=== PATIENT | male | born 1960 | race Caucasian/White ===

== ENCOUNTER 2018-07-11 11:44 | Emergency (ER) | payer BC ==
--- NOTE | 2018-07-11 12:00 | ER Document Report ---
ED Medical Screen (RME) - General Chief Complaint: Chemical Inhalation Stated Complaint: DIFFICULTY BREATHING Time Seen by Provider: 07/11/18 11:58 Mode of Arrival: Ambulatory Information source: Patient Notes: This is a 57-year-old man with a history of coronary artery disease, hypertension, diabetes and dyslipidemia who was opening up on container of chlorine for the pool when he incidentally took an deep breath and inhaled some chlorine gas. He presents with tightness and irritation when breathing. TRAVEL OUTSIDE OF THE [place] IN LAST 30 DAYS: No - Related Data Allergies/Adverse Reactions: No Known Allergies Allergy (Verified 07/11/18 11:46) Past Medical History - Past Medical History Cardiac Medical History: Reports: Hx Hypercholesterolemia, Hx Hypertension Denies: Hx Coronary Artery Disease, Hx Heart Attack Pulmonary Medical History: Reports: Hx Sleep Apnea Denies: Hx Asthma, Hx Bronchitis, Hx COPD, Hx Pneumonia, Hx Tuberculosis Neurological Medical History: Denies: Hx Cerebrovascular Accident, Hx Seizures Endocrine Medical History: Reports: Hx Diabetes Mellitus Type 2, Hx Hyperthyroidism Renal/ Medical History: Denies: Hx Peritoneal Dialysis GI Medical History: Reports: Hx Gastroesophageal Reflux Disease, Hx Colonoscopy Musculoskeltal Medical History: Denies Hx Arthritis Psychiatric Medical History: Denies: Hx Depression Past Surgical History: Reports: Hx Appendectomy, Hx Cholecystectomy, Hx Oral Surgery - Jaw - Immunizations Hx Diphtheria, Pertussis, Tetanus Vaccination: Yes Physical Exam - Vital signs Vitals: Temp Pulse Resp BP Pulse Ox 98.2 F 75 16 140/81 H 93 07/11/18 11:49 07/11/18 11:49 07/11/18 11:49 07/11/18 11:49 07/11/18 11:49 Course - Vital Signs Vital signs: Temp Pulse Resp BP Pulse Ox 98.2 F 75 16 140/81 H 93 07/11/18 11:49 07/11/18 11:49 07/11/18 11:49 07/11/18 11:49 07/11/18 11:49 Doctor's Discharge - Discharge Referrals: AI PETTY MD [Primary Care Provider] - Follow up as needed
[2018-07-11] MEDS ORDERED: IPRATROPIUM/ALBUTEROL 0.5-2.5 MG/3 ML AMPUL NEB ONE (12:34)
[2018-07-11] MEDS ORDERED: LIDOCAINE 1% INJ-PF (10 MG/ML) 30 ML SDV NEB ONE (12:34)
[2018-07-11] MEDS ORDERED: PREDNISONE 20 MG TABLET PO ONE (12:35)
--- NOTE | 2018-07-11 12:39 | ER Document Report ---
ED Burn/Smoke/Toxic Fumes - General Mode of Arrival: Ambulatory Information source: Patient TRAVEL OUTSIDE OF THE [place] IN LAST 30 DAYS: No <LATISHA LOYA - Last Filed: 07/11/18 13:26> <MAYITO BEDOYA - Last Filed: 07/11/18 16:06> - General Chief Complaint: Chemical Inhalation Stated Complaint: DIFFICULTY BREATHING Time Seen by Provider: 07/11/18 11:58 Notes: 57-year-old male who presents to the emergency department today with complaints of chlorine tablet fume inhalation. Patient states he was bending over a bucket of chlorine tablets to see how many he had left and he took in a big breath of air because he was "not thinking". 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 Patient describes these effects as burning in his nose and throat when breathing in. Patient states he feels like he is wheezing as well which he never does. (LATISHA LOYA) - Related Data Allergies/Adverse Reactions: No Known Allergies Allergy (Verified 07/11/18 11:46) Past Medical History - General Information source: Patient - Social History Smoking Status: Never Smoker Cigarette use (# per day): No Frequency of alcohol use: None Drug Abuse: None Lives with: Family Family History: Reviewed & Not Pertinent Patient has suicidal ideation: No Patient has homicidal ideation: No - Past Medical History Cardiac Medical History: Reports: Hx Hypercholesterolemia, Hx Hypertension Pulmonary Medical History: Reports: Hx Sleep Apnea Endocrine Medical History: Reports: Hx Diabetes Mellitus Type 2, Hx Hyperthyroidism GI Medical History: Reports: Hx Gastroesophageal Reflux Disease, Hx Colonoscopy Past Surgical History: Reports: Hx Appendectomy, Hx Cholecystectomy, Hx Oral Surgery - Jaw - Immunizations Hx Diphtheria, Pertussis, Tetanus Vaccination: Yes <LATISHA LOYA - Last Filed: 07/11/18 13:26> Review of Systems - Review of Systems Constitutional: See HPI, Other - Chlorine fume inhalation EENT: See HPI, Other - Burning sensation and nose and throat Cardiovascular: No symptoms reported Respiratory: See HPI, Wheezing Gastrointestinal: No symptoms reported Genitourinary: No symptoms reported Male Genitourinary: No symptoms reported Musculoskeletal: No symptoms reported Skin: No symptoms reported Hematologic/Lymphatic: No symptoms reported Neurological/Psychological: No symptoms reported -: Yes All other systems reviewed and negative <LATISHA LOYA - Last Filed: 07/11/18 13:26> Physical Exam <LATISHA LOYA - Last Filed: 07/11/18 13:26> <MAYITO BEDOYA - Last Filed: 07/11/18 16:06> - Vital signs Vitals: Temp Pulse Resp BP Pulse Ox 98.2 F 75 16 140/81 H 93 07/11/18 11:49 07/11/18 11:49 07/11/18 11:49 07/11/18 11:49 07/11/18 11:49 - Notes Notes: Physical Exam: General: Alert, appears well. HEENT: Normocephalic. Atraumatic. PERRL. Extraocular movements intact. Oropharynx clear. Neck: Supple. Non-tender. Respiratory: No respiratory distress. Wheezing bilaterally. Complains of a burning sensation in the nose and throat when breathing in. Cardiovascular: Regular rate and rhythm. Abdominal: Normal Inspection. Non-tender. No distension. Normal Bowel Sounds. Back: Non-tender. No deformity or step off. Extremities: Moves all four extremities. Upper extremities: Normal inspection. Normal ROM. Lower extremities: Normal inspection. No edema. Normal ROM. Neurological: Normal cognition. AAOx4. Normal speech. Psychological: Normal affect. Normal Mood. Skin: Warm. Dry. Normal color. (LATISHA LOYA) Course - Diagnostic Test Radiology reviewed: Image reviewed, Reports reviewed - EKG Interpretation by Me EKG shows normal: Sinus rhythm, [place], Intervals, QRS Complexes. abnormal: ST-T Waves - Borderline T abnormalities Rate: Normal - 73 Rhythm: NSR <MAYITO BEDOYA - Last Filed: 07/11/18 16:06> - Vital Signs Vital signs: Temp Pulse Resp BP Pulse Ox 98.2 F 75 17 139/79 H 97 07/11/18 11:49 07/11/18 13:07 07/11/18 13:07 07/11/18 14:00 07/11/18 14:01 Discharge <LATISHA LOYA - Last Filed: 07/11/18 13:26> <MAYITO BEDOYA - Last Filed: 07/11/18 16:06> - Discharge Clinical Impression: Chlorine inhalation lung injury, Acute bronchospasm Condition: Stable Disposition: HOME, SELF-CARE Additional Instructions: Bronchospasm You have tightness in the bronchial tubes, called bronchospasm. This often occurs with bronchial infections. Allergies, inhaled chemicals, and polluted or cold air can also provoke bronchospasm. It's more likely in patients with asthma in the family. Emergency treatment of bronchospasm may include adrenaline shots or bronchodilator aerosol. You may feel lightheaded and have a rapid pulse for an hour or two. Rest and get plenty of fluids. At home, we'll treat you with a bronchodilator inhaler. Antibiotics and corticosteroids may be required for some patients. Until you recover, avoid chemical fumes, dusts, pollens, and exercising in very cold or dry air. If you smoke, stop now!! If you develop a fever, increased wheezing, chest pain, or severe shortness of breath, you should contact the doctor immediately. Drink plenty of fluids. Start the prednisone as prescribed tomorrow. Take your metformin twice daily as it is prescribed. Use the albuterol inhaler 2 inhalations every 4 hours as needed for wheezing or shortness of breath. Follow-up with your doctor if not improving. RETURN TO THE EMERGENCY ROOM IF ANY NEW OR WORSENING SYMPTOMS. Prescriptions: Prednisone 20 mg PO BID #6 tablet Referrals: AI PETTY MD [DEANA LEE] - Follow up as needed Scribe Attestation: 07/11/18 12:55 I personally performed the services described in the documentation, reviewed and edited the documentation which was dictated to the scribe in my presence, and it accurately records my words and actions. (MAYITO BEDOYA) Scribe Documentation - Scribe Written by Scribe:: Wallace Cesar, 07/11/2018 1333 acting as scribe for :: Sia <LATISHA LOYA - Last Filed: 07/11/18 13:26>
[2018-07-11] MEDS ORDERED: ALBUTEROL SULFATE 0.083% NEB 2.5 MG/3 ML AMPUL NEB ONE (13:40)
--- NOTE | 2018-07-11 14:11 | RADIOLOGY REPORT (SQ) ---
EXAM DESCRIPTION: CHEST 2 VIEWS COMPLETED DATE/TIME: 07/11/2018 1:31 pm REASON FOR STUDY: inhaled chlorine gas-sob COMPARISON: 01/01/2016. TECHNIQUE: Frontal and lateral radiographic views of the chest acquired. NUMBER OF VIEWS: Two view. LIMITATIONS: None. FINDINGS: LUNGS AND PLEURA: No opacities, masses or pneumothorax. No pleural effusion. MEDIASTINUM AND HILAR STRUCTURES: No masses or contour abnormalities. HEART AND VASCULAR STRUCTURES: Heart normal size. No evidence for failure. BONES: No acute findings. HARDWARE: None in the chest. OTHER: No other significant finding. IMPRESSION: NO SIGNIFICANT RADIOGRAPHIC FINDING IN THE CHEST. TECHNICAL DOCUMENTATION: JOB ID: [id number] [employer]- All Rights Reserved Reading location - IP/workstation name: [email or web address]
[2018-07-11 16:10] VITALS: BP 141/82
--- NOTE | 2018-07-12 07:56 | EKG REPORT ---
SEVERITY:- BORDERLINE ECG - SINUS RHYTHM BORDERLINE T WAVE ABNORMALITIES : Confirmed by: Christina Lopez 12-Jul-2018 07:55:41
== END 2018-07-11 16:10 | disposition home or self-care (01) ==
LOC: ER 11:44
DX: T59.4X1A Toxic effect of chlorine gas, accidental (unintentional), initial encounter (principal); J68.8 Other respiratory conditions due to chemicals, gases, fumes and vapors; R09.89 Other specified symptoms and signs involving the circulatory and respiratory systems; I10 Essential (primary) hypertension; E11.9 Type 2 diabetes mellitus without complications
CPT/HCPCS: 93005; 94640 ×2; 99284; 71046; 93010; J3490; J7512; J7620

== ENCOUNTER 2018-07-19 02:08 | Emergency (ER) | payer BC ==
--- NOTE | 2018-07-19 02:38 | ER Document Report ---
ED General - General Chief Complaint: Irregular Pulse Stated Complaint: HEART ISSUE Time Seen by Provider: 07/19/18 02:37 Notes: Patient is a pleasant 57-year-old male who presents with complaints of onset of feeling as if his heart was beating irregular tonight. He says that he did feel little bit faster than normal and it felt somewhat irregular. Says he has had this happen several years in the past but it was attributed to him being on a herbal supplement. He stopped taking herbal supplement years ago and is not any issues. He denies any history of atrial fibrillation. No history of ventricular tachycardia. He had a heart cath several years ago which just showed a small blockage in the posterior aspect of his heart. He does not have any stents in place. He does take Plavix and aspirin. He is followed by Pito Coley who is his primary care doctor. He does not see a whiting can worker. During today's episode he did not have any chest pain. He did not feel short of breath. He did not have a syncopal episode. No recent leg pain or leg swelling. TRAVEL OUTSIDE OF THE [place] IN LAST 30 DAYS: No - Related Data Allergies/Adverse Reactions: No Known Allergies Allergy (Verified 07/11/18 11:46) Past Medical History - Social History Smoking Status: Never Smoker Frequency of alcohol use: 2-3 beers daily Drug Abuse: None Family History: Reviewed & Not Pertinent - Past Medical History Cardiac Medical History: Reports: Hx Hypercholesterolemia, Hx Hypertension Denies: Hx Coronary Artery Disease, Hx Heart Attack Pulmonary Medical History: Reports: Hx Sleep Apnea Denies: Hx Asthma, Hx Bronchitis, Hx COPD, Hx Pneumonia, Hx Tuberculosis Neurological Medical History: Denies: Hx Cerebrovascular Accident, Hx Seizures Endocrine Medical History: Reports: Hx Diabetes Mellitus Type 2, Hx Hyperthyroidism Renal/ Medical History: Denies: Hx Peritoneal Dialysis GI Medical History: Reports: Hx Gastroesophageal Reflux Disease, Hx Colonoscopy Musculoskeletal Medical History: Denies Hx Arthritis Psychiatric Medical History: Denies: Hx Depression Past Surgical History: Reports: Hx Appendectomy, Hx Cholecystectomy, Hx Oral Surgery - Jaw - Immunizations Hx Diphtheria, Pertussis, Tetanus Vaccination: Yes Review of Systems - Review of Systems Notes: My Normal Review Basic REVIEW OF SYSTEMS: CONSTITUTIONAL : Denies fever, chills, or sweats. Denies recent illness. EENT: Denies eye, ear, throat, or mouth pain or symptoms. Denies nasal or sinus congestion. CARDIOVASCULAR: Denies chest pain. Palpitations. RESPIRATORY: Denies cough, cold, or chest congestion. Denies shortness of breath, difficulty breathing, or wheezing. GASTROINTESTINAL: Denies abdominal pain. Denies nausea, vomiting, or diarrhea. MUSCULOSKELETAL: Denies neck or back pain or joint pain or swelling. SKIN: Denies rash or skin lesions. NEUROLOGICAL: Denies altered mental status or loss of consciousness. ALL OTHER SYSTEMS REVIEWED AND NEGATIVE. Physical Exam - Vital signs Vitals: Temp Pulse Resp BP Pulse Ox 97.7 F 106 H 19 124/83 97 07/19/18 02:13 07/19/18 02:13 07/19/18 02:13 07/19/18 02:13 07/19/18 02:13 - Notes Notes: General Appearance: Well nourished, alert, cooperative, no acute distress, no obvious discomfort. Well-appearing. Vitals: reviewed, See vital signs table. Head: no swelling or tenderness to the head Eyes: PERRL, EOMI, Conjuctiva clear Mouth: No decreasd moisture Throat: No tonsillar inflammation, No airway obstruction, No lymphadenopathy Neck: Supple, no neck tenderness, No thyromegaly Lungs: No wheezing, No rales, No rhonci, No accessory muscle use, good air exchange bilaterally. Heart: Normal rate, Regular rythm, No murmur, no rub. 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 Abdomen: Normal BS, soft, No rigidity, No abdominal tenderness, No guarding, no rebound, Extremities: strength 5/5 in all extremities, good pulses in all extremities, Skin: warm, dry, appropriate color, no rash Neuro: speech clear, oriented x 3, normal affect, responds appropriately to questions. Course - Re-evaluation Re-evalutation: 07/19/18 05:07 Patient has been on a monitor now for over an hour. He will have an occasional single PVC. No runs of PVCs. He has not had any significant tachycardia other than his heart rate was 106 when he first arrived. While he is rested in the room his heart rate is now down into the 80s without any intervention. He did not have any concerning signs or symptoms associate with his palpitations such as chest pain, shortness of breath, or syncope. I feel he is safe to be discharged home with close follow-up with his doctor or whiting can worker for Holter monitor. I strongly encourage him return to ER if he has chest pain, shortness of breath, recurrence of palpitations, feels as if his heart is beating fast, or if he feels unwell. Patient agrees with plan will be discharged home. Dictation of this chart was performed using voice recognition software; therefore, there may be some unintended grammatical errors. 07/19/18 05:09 - Vital Signs Vital signs: Temp Pulse Resp BP Pulse Ox 97.7 F 106 H 19 124/83 97 07/19/18 02:13 07/19/18 02:13 07/19/18 02:13 07/19/18 02:13 07/19/18 02:13 - Laboratory Result Diagrams: 07/19/18 03:05 07/19/18 03:05 Laboratory results interpreted by me: 07/19/18 07/19/18 03:05 03:05 RDW 14.1 H Glucose 147 H - EKG Interpretation by Me Additional EKG results interpreted by me: 07/19/18 02:38 EKG is reviewed and interpreted by me. EKG shows normal sinus rhythm with rate of [address] segment elevation or depression. No ischemic T wave inversions. MO interval, QRS duration, QTc intervals are within normal range. Old EKG for comparison is from July 11, 2018. Discharge - Discharge Clinical Impression: Palpitations Condition: Good Disposition: HOME, SELF-CARE Additional Instructions: Currently I do not see any evidence of an underlying life-threatening heart arrhythmia. Even though your workup today is negative it does not mean that you should should ignore future symptoms. Please have a low threshold to return to the ER immediately if you have recurrence of a rapid heartbeat, chest pain, difficulty breathing, or if you have a passing out episode or feel very dizzy. Please follow-up with your doctor or the whiting can worker, Dr. Marmolejo, for reevaluation and to have a Holter monitor placed to monitor your rhythm for 48 hours to see if there is any intermittent underlying arrhythmia. Please avoid caffeine. Referrals: PITO COLEY MD [Primary Care Provider] - Follow up tomorrow ROSENDO MARMOLEJO MD [ACTIVE STAFF] - Follow up tomorrow
[2018-07-19 03:19] LABS: ABSOLUTE BASOPHILS # (AUTO) 0.1 10^3/uL (0.0-0.2); ABSOLUTE EOSINOPHILS # (AUTO) 0.1 10^3/uL (0.0-0.6); ABSOLUTE LYMPHOCYTES (AUTO) 1.9 10^3/uL (0.5-4.7); ABSOLUTE MONOCYTES (AUTO) 0.6 10^3/uL (0.1-1.4); ABSOLUTE NEUT (AUTO) 4.2 10^3/uL (1.7-8.2); BASOPHILS % (AUTO) 0.8 % (0-2); HEMATOCRIT 42.7 % (37.9-51.0); HEMOGLOBIN 14.8 g/dL (13.5-17.0); MEAN CORPUSCULAR HEMOGLOBIN 30.3 pg (27.0-33.4); MEAN CORPUSCULAR HGB CONC 34.6 g/dL (32.0-36.0); MEAN CORPUSCULAR VOLUME 88 fl (80-97); PLATELET COUNT 329 10^3/uL (150-450); RED BLOOD COUNT 4.88 10^6/uL (4.35-5.55); RED CELL DISTRIBUTION WIDTH 14.1 % (11.5-14.0); SEGMENTED NEUTROPHILS % (AUTO) 61.2 % (42-78); TOTAL CELLS COUNTED % (AUTO) 100 %; WHITE BLOOD COUNT 6.9 10^3/uL (4.0-10.5)
[2018-07-19 03:43] LABS: ALANINE AMINOTRANSFERASE 24 U/L (21-72); ALBUMIN 3.8 g/dL (3.5-5.0); ALKALINE PHOSPHATASE 84 U/L (38-126); ANION GAP 12 (5-19); ASPARTATE AMINO TRANSFERASE 21 U/L (17-59); BILIRUBIN,DIRECT 0.3 mg/dL (0.0-0.4); BILIRUBIN,TOTAL 0.5 mg/dL (0.2-1.3); BLOOD UREA NITROGEN 15 mg/dL (7-20); CARBON DIOXIDE 23 mmol/L (22-30); CHLORIDE 105 mmol/L (98-107); GLUCOSE 147 mg/dL (75-110); SODIUM 140.1 mmol/L (137-145); TOTAL PROTEIN 6.4 g/dL (6.3-8.2)
[2018-07-19 04:44] VITALS: BP 144/99
--- NOTE | 2018-07-19 06:49 | EKG REPORT ---
SEVERITY:- NORMAL ECG - SINUS RHYTHM : Confirmed by: Christina Lopez 19-Jul-2018 06:48:37
== END 2018-07-19 04:50 | disposition home or self-care (01) ==
LOC: ER 02:08
DX: R00.2 Palpitations (principal); I49.3 Ventricular premature depolarization; I10 Essential (primary) hypertension; Z79.02 Long term (current) use of antithrombotics/antiplatelets; Z79.82 Long term (current) use of aspirin; E11.9 Type 2 diabetes mellitus without complications
CPT/HCPCS: 36415; 80053; 83735; 84484; 85025; 93005; 93010; 99285